=== PATIENT | female | born 2000 ===

== ENCOUNTER 2020-07-08 23:44 | Inpatient (IN) | payer OTHER ==
[2020-07-09 00:56] LABS: Hematocrit 33.7 % (30.3-42.9); Hemoglobin 10.9 gm/dl (10.1-14.3); Mean Corpuscular HGB Conc 32 % (30-34); Mean Corpuscular Volume 80 fl (79-97); Platelet Count 154 K/mm3 (140-440); Red Blood Count 4.19 M/mm3 (3.65-5.03)
[2020-07-09 00:59] LABS: Red Cell Distribution Width 20.2 % (13.2-15.2)
[2020-07-09] MEDS ORDERED: OXYTOCIN 20 UNIT/1000ML DRIP 20,000 MILLIUNITS/1,000 ML BAG IV ONE (01:23)
[2020-07-09] MEDS ORDERED: LACTATED RINGERS 1,000 ML ONE (01:23)
--- NOTE | 2020-07-09 02:12 | History and Physical Report ---
History of Present Illness Date of examination: 07/09/20 Date of admission: 07/09/20 01:08 Chief complaint: Labor Pains History of present illness: States she had a uncomplicated course at [facility]. No records available. Past History Past Medical History: no pertinent history Past Surgical History: no surgical history Family/Genetic History: none Social history: no significant social history - Obstetrical History Expected Date of Delivery: 07/16/20 Actual Gestation: 39 Week(s) 0 Day(s) : 2 Para: 1 Hx # Term Pregnancies: 1 Number of Living Children: 1 Medications and Allergies Allergies Allergy/AdvReac Type Severity Reaction Status Date / Time No Known Allergies Allergy Verified 05/30/20 22:31 Review of Systems All systems: negative - Vital Signs Vital signs: Vital Signs Temp Pulse Resp BP 99 F 69 17 110/65 07/09/20 00:07 07/09/20 00:07 07/09/20 00:07 07/09/20 00:07 Temp Pulse Resp BP Pulse Ox 99 F 84 17 110/65 97 07/09/20 00:07 07/09/20 00:42 07/09/20 00:07 07/09/20 00:18 07/09/20 00:42 - Physical Exam Breasts: Positive: normal Cardiovascular: Regular rate Lungs: Positive: Clear to auscultation, Normal air movement Abdomen: Positive: normal appearance, soft, normal bowel sounds Genitourinary (Female): Positive: normal external genitalia, normal perenium Uterus: Positive: enlarged - Obstetrical FHR: category 2 FHR comments: FHR: 140s, moderate varability, -accels, + isolated varabile decels. Uterine Contraction Monitor Mode: External Cervical Dilatation: 9 (AROM of clear fluid at 0120) Cervical Effacement Percentage: 90 station: 0 Uterine Contraction Pattern: Regular Uterine Tone Measurement Phase: Resting Uterine Contraction Intensity: Moderate Results Result Diagrams: 07/09/20 00:40 Abnormal lab results 07/09/20 Range/Units 00:40 WBC 11.6 H (4.5-11.0) K/mm3 MCH 26 L (28-32) pg RDW 20.2 H (13.2-15.2) % All other labs normal. Assessment and Plan A: IUP @ 39 Weeks Category II Tracing Active Labor GBS Unknown P: Admit to L&D Per Routine Orders GBS Prophylaxis AROM
[2020-07-09] MEDS ORDERED: LIDOCAINE (2%) 20 MG/1 ML VIAL 20 ML MDV INFILTRATI ONE (02:13)
[2020-07-09] MEDS ORDERED: BUTORPHANOL 2 MG/1 ML INJ IV PRN (02:13)
[2020-07-09] MEDS ORDERED: MINERAL OIL 30 ML ORAL LIQD PO PRN (02:13)
[2020-07-09] MEDS ORDERED: TERBUTALINE 1 MG/1 ML INJ SUB-Q PRN (02:13)
[2020-07-09] MEDS ORDERED: ePHEDrine SULFATE 50 MG/1 ML INJ IV PRN (02:13)
[2020-07-09] MEDS ORDERED: ONDANSETRON 4 MG/2 ML INJ IV PRN (02:13)
[2020-07-09] MEDS ORDERED: fentaNYL 100 MCG/2 ML INJ IV ONE (02:13)
[2020-07-09] MEDS ORDERED: fentaNYL 100 MCG/2 ML INJ ONE (02:14)
[2020-07-09] MEDS ORDERED: HYDROcodone/ACETAMINOPHEN 5-325 MG TAB PO PRN (02:46)
[2020-07-09] MEDS ORDERED: WITCH HAZEL/ GLYCERIN PAD TP PRN (02:46)
[2020-07-09] MEDS ORDERED: LANOLIN/ZINC/DIMETHICONE (LANSINOH) 7 GM TP PRN (02:46)
[2020-07-09] MEDS ORDERED: diphenhydrAMINE 25 MG CAP PO PRN (02:46)
--- NOTE | 2020-07-09 02:54 | Procedure Note ---
OB Delivery Note - Delivery Date of Delivery: 07/09/20 (0236) Surgeon: ALONSO MOSCOSO Estimated blood loss: 200cc - Vaginal Delivery presentation: vertex Delivery position: OA Intrapartum events: none Delivery induction: none Delivery augmentation: rupture of membranes Delivery monitor: external FHT, external uterine Route of delivery: Delivery placenta: spontaneous Delivery cord: 3 umbilical vessels Episiotomy: none Delivery laceration: none Anesthesia: none Delivery comments: of a live 7'8 male over a intact perineum under IV pain control with Apgars of 8 and 9 at 0236 on 07/09/2020. directly to maternal abd/chest, skin to skin contact. Spontaneous delivery of placenta complete and intact with Barnes side presenting at 0240. Fundus is firm and midline located 4 below the U. Lochia is scant. Delayed cord clamping and cutting; Cord cut by the Father of the Baby. Cord blood collected. Placenta to pathology. GBS prophylaxis X1. - A at 1 minute: 8 at 5 minutes: 9 Infant Gender: Male (7'8)
[2020-07-09] MEDS ORDERED: OXYTOCIN 20 UNIT/1000ML DRIP 20 UNITS/1,000 ML BAG IV SCH (03:00)
[2020-07-09] MEDS ORDERED: OXYTOCIN DRIP 30 UNITS/500 ML BAG IV SCH (03:00)
[2020-07-09] MEDS ORDERED: LACTATED RINGERS 1,000 ML IV SCH (03:00)
[2020-07-09] MEDS: IBUPROFEN 600 MG TAB PO SCH ×3 (03:50→18:31)
[2020-07-09] MEDS: PRENATAL VIT27-FE FUMARATE-FOLIC ACID VIT TAB PO SCH (11:25)
[2020-07-09 16:44] LABS: Hematocrit 31.7 % (30.3-42.9); Hemoglobin 10.1 gm/dl (10.1-14.3)
[2020-07-10] MEDS ORDERED: DIPHtheria,PERTUSSIS(ACELL),TETANUS VACCINE/PF 0.5 ML VIAL IM ONE (05:00)
[2020-07-10] MEDS: IBUPROFEN 600 MG TAB PO SCH ×3 (05:45→23:48)
--- NOTE | 2020-07-10 10:46 | Progress Note ---
Assessment and Plan - Patient Problems (1) Status post normal vaginal delivery Current Visit: Yes Status: Acute Plan to address problem: Continue routine PP orders Anticipate d/c home, as baby can not d/c until tomorrow F/U at office in 6 wks for routine PP visit (2) Anemia Current Visit: Yes Status: Acute Qualifiers: Anemia type: iron deficiency Plan to address problem: Asymptomatic Increase iron rich foods into diet Subjective - Subjective Date of service: 07/10/20 Principal diagnosis: S/P ; PPD#1 Interval history: See admission H & P; OB delivery summary and PP progress notes Patient reports: appetite normal, voiding normally, pain well controlled, flatus, ambulating normally [place]: doing well, bottle feeding (and ) Objective - Vital Signs Latest vital signs: Vital Signs Temp Pulse Resp BP BP Pulse Ox 07/10/20 07:39 97.9 F 66 20 102/63 97 07/10/20 00:00 98.6 F 69 16 101/66 07/09/20 20:29 98.6 F 65 18 100/62 99 07/09/20 17:53 76 119/67 98 07/09/20 17:49 97.6 F 70 18 97/61 100 07/09/20 13:12 98.0 F 60 16 110/57 97 07/09/20 11:25 20 Intake and Output 07/09/20 07/10/20 07/10/20 23:59 07:59 15:59 Intake Total 840 500 Balance 840 500 Intake: Oral 480 200 Intake, Free Water 360 300 Other: Total, Intake Amount 480 200 # Voids Void 1 1 - Exam Breasts: Present: normal Cardiovascular: Present: Regular rate Lungs: Present: Normal air movement Abdomen: Present: soft Uterus: Present: firm, fundal height below umbilicus (U-2) Extremities: Present: normal Deep Tendon Reflex Grade: Normal +2
--- NOTE | 2020-07-10 10:48 | Discharge Summary ---
Providers - Providers Date of Admission: 07/09/20 01:08 Date of discharge: 07/11/20 (1200) Attending physician: MALCOLM FLWOERS Primary care physician: MALCOLM FLOWERS Hospitalization Reason for admission: active labor Delivery: Episiotomy: none Laceration: none Other procedures: none complications: none Discharge diagnosis: IUP at term delivered, other (anemia) [place] baby: male Hospital course: See admission H & P; OB delivery summary and PP progress notes Condition at discharge: Good Disposition: DC-01 TO HOME OR SELFCARE - Discharge Diagnoses (1) Status post normal vaginal delivery Status: Acute (2) Anemia Status: Acute Qualifiers: Anemia type: iron deficiency Plan - Provider Discharge Summary Activity: routine, no sex for 6 weeks, no heavy lifting 4 weeks, no strenuous exercise Diet: other (iron rich diet) Instructions: routine Additional instructions: [] Smoking cessation referral if applicable(refer to patient education folder for contact #) [] Refer to [facility]'s [facility] Booklet Call your doctor immediately for: * Fever > 100.5 * Heavy vaginal bleeding ( >1 pad per hour) * Severe persistent headache * Shortness of breath * Reddened, hot, painful area to leg or breast - Follow up plan Follow up: MALCOLM FLOWERS MD [Primary Care Provider] - 6 Weeks
[2020-07-10] MEDS: PRENATAL VIT27-FE FUMARATE-FOLIC ACID VIT TAB PO SCH (10:50)
[2020-07-11 14:11] VITALS: BP 117/66
[2020-07-11] MEDS: IBUPROFEN 600 MG TAB PO SCH (15:20)
[2020-07-11] MEDS: PRENATAL VIT27-FE FUMARATE-FOLIC ACID VIT TAB PO SCH (15:20)
== END 2020-07-11 16:27 | disposition home or self-care (01) | DRG 807 ==
LOC: TRG 23:44 → APU 23:51 → LD 07-09 01:08 → TRG 07-09 01:08 → OB 07-09 05:03
PROVIDERS: ADMIT Obstetrics & Gynecology; ATTEND Obstetrics & Gynecology
PROC: 10E0XZZ Delivery of Products of Conception, External Approach (ICD-10-PCS; principal; 2020-07-09)
PROC: 00HU33Z Insertion of Infusion Device into Spinal Canal, Percutaneous Approach (ICD-10-PCS; 2020-07-09)
PROC: 3E0R3BZ Introduction of Anesthetic Agent into Spinal Canal, Percutaneous Approach (ICD-10-PCS; 2020-07-09)
PROC: 3E0234Z Introduction of Serum, Toxoid and Vaccine into Muscle, Percutaneous Approach (ICD-10-PCS; 2020-07-10)
DX: O99.02 Anemia complicating childbirth (principal); Z37.0 Single live birth; Z3A.39 39 weeks gestation of pregnancy; D50.9 Iron deficiency anemia, unspecified
CPT/HCPCS: 36415; 59025; 85014; 85018; 85027; 86592; 86706; 86762; 86850; 86900; 86901; 87806; 88307; 90715; G0378; J2590; J3010; J7120; U0003-CS